=== PATIENT | female | born 1995 | race Caucasian/White ===

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

== ENCOUNTER 2017-03-04 13:37 | Emergency (ER) | payer SELFPAY ==
[2017-03-04] MEDS ORDERED: HYDROcodone /APAP 10/325 1 EACH TABLET PO ONE (14:15)
[2017-03-04] MEDS ORDERED: ONDANSETRON HCL 4 MG TAB.RAPDIS PO ONE (14:15)
[2017-03-04] MEDS ORDERED: ONDANSETRON HCL 4 MG TAB.RAPDIS ONE (14:16)
[2017-03-04 14:42] VITALS: BP 120/66
--- NOTE | 2017-03-04 21:26 | ED Physician Documentation ---
Headache - HISTORIAN Historian: patient - HPI Stated Complaint: headache Chief Complaint: Headache Additional Information: started this am Onset: hours (6) Timing: abrupt, still present Exposure To: none Severity: severe Quality: similar to previous Associated Symptoms: sensitivity to light, nausea Preceding Symptoms: denies: visual disturbance, scotoma, typical of prior aura(s ) Exacerbated By: light, noise Further Comments: no Last known Well Code/Unknown Code: Known - ROS NEURO/PSYCH: denies: confusion, anxiety, depression, fainting EYES/ENT: denies: sore throat, difficulty swallowing, sinus pain, drainage CVS/RESP: none GI/: denies: abdominal pain, diarrhea, problems urinating, incontinence MS/SKIN/LYMPH: denies: muscle aches, back pain, rash, skin lesions, swollen glands all systems neg except as marked: Yes - PAST HX Medical History: no pertinent history Surgical History: other (oral) Immunizations: referred to PCP Allergies/Adverse Reactions: Allergies Allergy/AdvReac Type Severity Reaction Status Date / Time No Known Allergies Allergy Verified 03/04/17 13:49 Home Medications: Ambulatory Orders Medication Instructions Recorded [id number]/Iron Fumarate/FA/Dss 1 each PO DAILY 08/24/16 [ 19 Tablet] - SOCIAL HX Smoking History: non-smoker Alcohol Use: none Drug Use: none - Family HX Family History: none - VITAL SIGNS Vital Signs: Vital Signs Temp Pulse Resp BP Pulse Ox 98.1 F 94 H 20 120/66 98 03/04/17 14:41 03/04/17 14:41 03/04/17 14:41 03/04/17 14:41 03/04/17 14:41 - REVIEWED ASSESSMENTS Nursing Assessment Reviewed: Yes Vitals Reviewed: Yes Progress - Results/Orders Results/Orders: none ordered - Progress Progress: pt. given vicodin 10/325 p.o. x 1 and 4 mg zofran p.o. in er Critical Care Note - Critical Care Note Total Time (mins): 0 ED Results Lab/Radiology - Lab Results Lab Results: none ordered - Radiology Radiology Impressions: none ordered - Orders Orders: ED Orders Category Date Time Status HYDROcodone /APAP 10/325 [[place] 10/325] Med 03/04/17 14:15 Discontinued 1 each PO NOW ONE Ondansetron HCl Rapdis [Zofran Odt] Med 03/04/17 14:16 Discontinued 4 mg .ROUTE .STK-MED ONE Ondansetron HCl Rapdis [Zofran Odt] Med 03/04/17 14:15 Discontinued 4 mg PO NOW ONE Headache Physical Exam - EXAM General Appearance: alert, moderate distress EENT: no facial swelling, eyes nml inspection, PERRL, photophobia, pharynx nml. No: tender temporal artery, pain over sinuses Neck: normal inspection, thyroid normal, supple Respiratory: no resp distress, chest non-tender, breath sounds normal CVS: reg. rate & rhythm, heart sounds nml Abdomen: non-tender, no organomegaly, nml bowel sounds, no distention Skin: color nml, no rash Extremitites: non-tender, normal range of motion, no evidence of injury, no edema - NEURO/PSYCH Higher Functions: alert, oriented x3, nml speech Cranial: nml as tested, no evidence of acute CVA Cerebellar: nml as tested Sensorimotor: motor nml, sensation nml Discharge Clincal Impression: Migraine Qualifiers: Migraine type: unspecified Status migrainosus presence: without status migrainosus Intractability: intractable Qualified Code(s): G43.919 - Migraine, unspecified, intractable, without status migrainosus Referrals: Santiago Vega [Primary Care Provider] - 2 Days Home Medications: Ambulatory Orders Imk421/Iron Fumarate/FA/Dss [ 19 Tablet] 1 each PO DAILY 08/24/16 Comments: discharged with script for fioricet 1 p.o. qid prn headache, #10 Condition: Stable Disposition: 01 HOME, SELF-CARE Decision to Admit: NO Decision Time: 14:35
== END 2017-03-04 14:41 | disposition home or self-care (01) ==
LOC: ED 13:37
DX: G43.919 Migraine, unspecified, intractable, without status migrainosus (principal)
CPT/HCPCS: A9270 ×2; 99283

== ENCOUNTER 2017-04-02 02:40 | Emergency (ER) | payer SELFPAY ==
[2017-04-02 03:21] LABS: BASOPHILS % 1.1 (0.0-1.5); EOSINOPHILS % 5.9 % (0.0-6.8); MEAN CORPUSCULAR HEMOGLOBIN 27.5 pg (28.0-34.0); MEAN CORPUSCULAR VOLUME 85.4 fl (80.0-100.0); MONOCYTES % 3.9 % (0.0-11.0); NEUTROPHILS # 5.1 # k/uL (1.4-7.7)
[2017-04-02] MEDS: fentaNYL CITRATE/PF 100 MCG/ 2ML AMP IVP ONE (03:21)
[2017-04-02] MEDS: ONDANSETRON HCL/PF 4 MG/ 2ML VIAL IVP ONE (03:21)
[2017-04-02] MEDS ORDERED: NORMAL SALINE 500 ML IV.SOLN IV SCH (03:30)
[2017-04-02 03:34] LABS: eGFR (African) > 60; eGFR (Non-African) > 60
[2017-04-02 04:13] VITALS: BP 128/74
--- NOTE | 2017-04-02 04:24 | ED Physician Documentation ---
Abdominal Pain - HISTORIAN Historian: patient - HPI Chief Complaint: Abdominal Pain Additonal Information: 21 yo F who present with RUQ pain associated with nausea but no emesis. Pt recently had 3 weeks ago. No fever or chills reported. No previous abdominal surgery. Onset: hours Context: other (none) Severity: mild Quality: pain Associated Symptoms: nausea Exacerbated by: nothing Relieved by: nothing - ROS CONST: no problems CVS/RESP: none EYES/ENT: none MS/SKIN/LYMPH: none NEURO/PSYCH: none - SOCIAL HX Smoking History: cigarettes - FAMILY HX Family History: no significant history - PAST HX Past History: GERD Home Medications: Ambulatory Orders Medication Instructions Recorded Ranitidine HCl 150 mg PO QDAY 04/02/17 Allergies/Adverse Reactions: Allergies Allergy/AdvReac Type Severity Reaction Status Date / Time No Known Allergies Allergy Verified 04/02/17 02:58 - VITAL SIGNS Vital Signs: Vital Signs Temp Pulse Resp BP Pulse Ox 98.2 F 76 16 128/74 99 04/02/17 04:05 04/02/17 04:05 04/02/17 04:05 04/02/17 04:05 04/02/17 04:05 - REVIEWED ASSESSMENTS Nursing Assessment Reviewed: Yes Vitals Reviewed: Yes Progress - Progress Progress: RUQ with nausea without emesis but chest tightness-- considering recent delivery -- will rule out blood clot--D-dimer negative with negative CT abd/pel -- will d/c home on antacid-- for acid reflux- - EKG/XRAY/CT CT: CT abd/pel --negative for any acute intraabdominal findings ED Results Lab/Radiology - Lab Results Lab Results: Lab Results 04/02/17 04/02/17 04/02/17 03:08 03:08 03:07 WBC 9.00 K/ul K/ul (4.00-12.00) RBC 4.75 M/ul M/ul (3.90-5.20) Hgb 13.1 g/dL g/dL (12.0-16.0) Hct 40.6 % % (34.5-46.5) MCV 85.4 fl fl (80.0-100.0) MCH 27.5 pg L pg (28.0-34.0) MCHC 32.2 g/dL g/dL (30.0-36.0) RDW 12.7 % % (11.3-14.3) Plt Count 282 K/mm3 K/mm3 (130-400) Neut % (Auto) 56.9 % % (39.0-79.0) Lymph % (Auto) 31.9 % % (16.0-50.0) Fisher % (Auto) 3.9 % % (0.0-11.0) Eos % (Auto) 5.9 % % (0.0-6.8) Baso % (Auto) 1.1 (0.0-1.5) Neut # (Auto) 5.1 # k/uL # k/uL (1.4-7.7) Lymph # (Auto) 2.9 # k/uL # k/uL (0.6-4.0) Fisher # (Auto) 0.4 # k/uL # k/uL (0.0-0.9) Eos # (Auto) 0.5 # k/uL # k/uL (0.0-0.6) Baso # (Auto) 0.1 # k/uL # k/uL (0.0-0.5) Reactive Lymphs % 0.5 % % (0.0-5.0) Reactive Lymphs # 0.0 # k/uL # k/uL (0.0-0.8) D-Dimer 464 ng/mL ng/mL (6.0-682) Sodium 142 mmol/L mmol/L (136-145) Potassium 3.9 mmol/L mmol/L (3.5-5.0) Chloride 110 mmol/L mmol/L (98-110) Carbon Dioxide 28 mmol/L mmol/L (20-32) BUN 16 mg/dL mg/dL (10-26) Creatinine 0.6 mg/dL mg/dL (0.4-1.5) Estimated Creat Clear 292 Est GFR ( Amer) > 60 (60 - ) Est GFR (Non-Af Amer) > 60 (60 - ) Glucose 111 mg/dL H mg/dL (70-99) Calcium 10.1 mg/dL mg/dL (8.5-10.5) Total Bilirubin 0.2 mg/dL mg/dL (0.2-1.2) AST 16 U/L U/L (0-41) ALT 14 U/L U/L (0-45) Alkaline Phosphatase 98 U/L U/L (46-116) Total Protein 7.7 g/dL g/dL (6.0-8.5) Albumin 4.3 g/dL g/dL (3.0-5.5) - Orders Orders: ED Orders Category Date Time Status Place IV Lock 1T Care 04/02/17 03:[address] ABDOMEN PELVIS S [CT ABD & PELVIS W/O CON] Stat Exams 04/02/17 Ordered CBC/PLATELET/DIFF Routine Lab 04/02/17 03:08 Completed CMP [CMP] Routine Lab 04/02/17 03:08 Completed D DIMER Routine Lab 04/02/17 03:07 Completed UA W/MICRO IF INDICATED Routine Lab 04/02/17 03:02 Ordered 0.9 % Sodium Chloride [Normal Saline] Med 04/02/17 03:30 Ordered 1,000 ml IV DIRECTED Ondansetron HCl/Pf [Zofran 4 mg/2 ml] Med 04/02/17 03:04 Discontinued 4 mg IVP NOW ONE fentaNYL CITRATE/PF [Duragesic] Med 04/02/17 03:05 Discontinued 25 mcg IVP NOW ONE Abdominal Pain Physical Exam - Physical Exam General Appearance: no acute distress EENT: eye inspection normal, ENT inspection normal, pharynx normal, no signs of dehydration, SIMI, no nystagmus, TM's nml NECK: normal inspection RESPIRATORY: no resp distress, chest non-tender, breath sounds normal CVS: reg rate & rhythm, heart sounds normal, equal pulses, no murmur, no gallop , PMI nml, no JVD, no friction rub, 24 ABDOMEN: soft, no organomegaly, normal bowel sounds, no abdominal bruit, no distension, tenderness (RUQ) BACK: normal inspection, no CVA tenderness SKIN: normal color, warm/dry, NR, INT, PAL, DR EXTREMITIES: non-tender, normal range of motion, no evidence of injury, no edema , J, 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: oriented X3, CN's nml as tested, motor nml, sensation nml Vital Signs: Vital Signs Temp Pulse Resp BP Pulse Ox 98.2 F 76 16 128/74 99 04/02/17 04:05 04/02/17 04:05 04/02/17 04:05 04/02/17 04:05 04/02/17 04:05 Discharge Clincal Impression: Acid reflux disease Qualifiers: Esophagitis presence: esophagitis presence not specified Qualified Code(s): K21.9 - Gastro-esophageal reflux disease without esophagitis Referrals: Santiago Vega [Primary Care Provider] - 2 Days Home Medications: Ambulatory Orders Ranitidine HCl 150 mg PO QDAY 04/02/17 Condition: Stable Disposition: 01 HOME, SELF-CARE Decision to Admit: NO Decision Time: 04:00
[2017-04-02 05:36] LABS: APPEARANCE,URINE CLOUDY (CLEAR); COLOR,URINE YELLOW (YELLOW); OCCULT BLOOD,URINE 2+ (NEGATIVE); PH URINE 5.5 (5.0 - 8.0); UROBILINOGEN URINE 0.2 Eu (0.2-1.0)
--- NOTE | 2017-04-02 06:00 | Diagnostic Imaging Report ---
AARON SPRAGUE~ [facility] [address] [facility] [address] [place], [place]. [address] ~ ~ ~ ~ Report Submission Date: Apr 02, 2017 3:53:49 AM CDT Patient ~ Study Name: JOSE VUONG ~ Date: Apr 02, 2017 3:26:42 AM CDT ~ Modality Type: CT\SR Gender: F ~ Description: CT ABD & PELVIS W/O CO : 97 ~ Institution: [facility] Physician: AARON SPRAGUE ~ ~ ~ ~ Examination: CT Abdomen/pelvis History: RLQ discomfort Comparison exams: None available Technique: CT Abdomen/pelvis without contrast protocol.~ Findings: Liver, spleen, adrenal glands, kidneys, pancreas and gallbladder are without irregularity.~ Abdominal aorta with mild peripheral atherosclerotic disease. ~Bowel without contrast limiting evaluation. No pericecal / periappendiceal inflammatory changes. No right adnexal mass or inflammation. No evidence for acute mesenteric inflammation or free air. Osseous structures without abnormality. Lung bases without infiltrate. Impression: No abdominal mass or acute inflammatory process given technique. ~ Electronically signed on Apr 02, 2017 3:53:49 AM CDT by: Dixon GIRALDO
== END 2017-04-02 04:05 | disposition home or self-care (01) ==
LOC: ED 02:40
DX: K21.9 Gastro-esophageal reflux disease without esophagitis (principal)
CPT/HCPCS: 74176; 80053; 81002; 85025; 85379; 87086; J2405; J3010; 96374; 96375; 99283; S1016

== ENCOUNTER 2018-07-13 20:20 | Emergency (ER) | payer BC ==
--- NOTE | 2018-07-13 20:40 | ED Physician Documentation ---
General Adult - HISTORIAN Historian: patient - HPI Stated Complaint: Right ear pain Chief Complaint: General Adult Onset: days ago (3) Timing: still present Severity: moderate Further Comments: yes (Pt is a 22 yo female with R ear pain x 3 days. Pt dose not have sore throat or fever, n/v.) - ROS CONST: no problems EYES/ENT: other (R ear pain) CVS/RESP: none GI/: none MS/SKIN/LYMPH: none - PAST HX Past History: other (migraine) Allergies/Adverse Reactions: Allergies Allergy/AdvReac Type Severity Reaction Status Date / Time No Known Allergies Allergy Verified 07/13/18 20:29 Home Medications: Ambulatory Orders Medication Instructions Recorded NK 07/13/18 - SOCIAL HX Smoking History: non-smoker - FAMILY HX Family History: No - VITAL SIGNS Vital Signs: Vital Signs Temp Pulse Resp BP Pulse Ox 98.6 F 82 18 128/74 98 07/13/18 20:25 07/13/18 20:25 07/13/18 20:25 04/02/17 04:05 07/13/18 20:25 - REVIEWED ASSESSMENTS Nursing Assessment Reviewed: Yes Vitals Reviewed: Yes Progress - Progress Progress: Rx Amoxicillin 500 mg. Take one every 8 hours for 10 days. Tylenol/Motrin as needed. Use as directed. General Adult Physical Exam - PHYSICAL EXAM GENERAL APPEARANCE: mild distress EENT: pharynx normal, TM erythema (R) NECK: normal inspection, supple RESPIRATORY: no resp distress, chest non-tender, breath sounds normal CVS: reg rate & rhythm, heart sounds normal BACK: normal inspection, no CVA tenderness SKIN: warm/dry, normal color EXTREMITIES: non-tender, normal range of motion, no evidence of injury NEURO: oriented X3 Discharge Clincal Impression: Otitis media Qualifiers: Otitis media type: unspecified Chronicity: acute Qualified Code(s): H66.90 - Otitis media, unspecified, unspecified ear Referrals: Kaushik Davenport MD [Primary Care Provider] - Condition: Good Disposition: 01 HOME, SELF-CARE Decision to Admit: NO Decision Time: 20:41
[2018-07-13] MEDS ORDERED: AMOXICILLIN 500 MG CAPSULE PO ONE (20:43)
== END 2018-07-13 20:45 | disposition home or self-care (01) ==
LOC: ED 20:20
DX: H66.90 Otitis media, unspecified, unspecified ear (principal)

== ENCOUNTER 2019-04-22 21:15 | Emergency (ER) | payer BC, MEDICAID ==
[2019-04-22] MEDS ORDERED: ONDANSETRON HCL/PF 4 MG/ 2ML VIAL IVP ONE (21:26)
[2019-04-22] MEDS ORDERED: 0.9 % SODIUM CHLORIDE 1,000 ML IV ONE (21:26)
[2019-04-22] MEDS ORDERED: PANTOPRAZOLE SODIUM IVP ONE (21:31)
[2019-04-22] MEDS ORDERED: SALINE FLUSH IVP ONE (21:31)
--- NOTE | 2019-04-22 21:34 | ED Physician Documentation ---
Nausea/Vomiting/Diarrhea - HISTORIAN Historian: patient - HPI Stated Complaint: nausea and diarrhea Chief Complaint: Nausea,Vomiting,Diarrhea Additional Information: Patient presents to ED with a 4 day history of diarrhea with epigastric pain and nausea beginning today. Patient denies fever or chills. She states she just feels horrible. Onset: days ago (4) Duration: persistent Timing: gradual onset Context: denies: out of country travel, bad food Severity: moderate - Associated Symptoms Vomiting: mild Diarrhea: watery Abdominal Pain: epigastric, LUQ - ROS CONST: none CVS/RESP: denies: chest pain, shortness of breath, cough GI/: denies: constipation, bloody stools EYES/ENT: none MS/SKIN/LYMPH: denies: leg swelling NEURO/PSYCH: denies: headache - PAST HX Past History: none Surgeries/Procedures: none Allergies/Adverse Reactions: Allergies Allergy/AdvReac Type Severity Reaction Status Date / Time No Known Drug Allergies Allergy Verified 04/22/19 21:32 Home Medications: Ambulatory Orders Medication Instructions Recorded Ondansetron HCl Rapdis [Zofran Odt] 4 mg PO Q8 PRN #20 tab 04/22/19 - SOCIAL HX Smoking History: cigarettes, greater than 1 pack/day Alcohol Use: none Drug Use: none - FAMILY HX Family History: none - VITAL SIGNS Vital Signs: Vital Signs Temp Pulse Resp BP Pulse Ox 98.3 F 90 18 155/89 100 04/22/19 21:17 04/22/19 21:17 04/22/19 21:17 04/22/19 21:17 04/22/19 21:17 - REVIEWED ASSESSMENTS Nursing Assessment Reviewed: Yes Vitals Reviewed: Yes ED Results Lab/Radiology - Lab Results Lab Results: Lab Results 04/22/19 04/22/19 22:10 22:10 WBC 16.00 K/ul H K/ul (4.00-12.00) RBC 4.68 M/ul M/ul (3.90-5.20) Hgb 12.0 g/dL g/dL (11.5-16.0) Hct 36.3 % % (34.5-46.5) MCV 78.0 fl L fl (80.0-100.0) MCH 25.6 pg L pg (28.0-34.0) MCHC 33.1 g/dL g/dL (30.0-36.0) RDW 12.9 % % (11.3-14.3) Plt Count 300 K/mm3 K/mm3 (130-400) Neut % (Auto) 70.9 % % (39.0-79.0) Lymph % (Auto) 20.1 % % (16.0-50.0) [place] % (Auto) 5.1 % % (0.0-11.0) Eos % (Auto) 3.3 % % (0.0-6.8) Baso % (Auto) 0.6 % % (0.0-1.5) Neut # (Auto) 11.3 # k/uL H # k/uL (1.4-7.7) Lymph # (Auto) 3.2 # k/uL # k/uL (0.6-4.0) [place] # (Auto) 0.8 # k/uL # k/uL (0.0-0.9) Eos # (Auto) 0.5 # k/uL # k/uL (0.0-0.6) Baso # (Auto) 0.1 # k/uL # k/uL (0.0-0.5) Sodium 138 mmol/L mmol/L (137-145) Potassium 4.0 mmol/L mmol/L (3.5-5.1) Chloride 104 mmol/L mmol/L (98-107) Carbon Dioxide 25 mmol/L mmol/L (22-30) BUN 14 mg/dL mg/dL (7-17) Creatinine 0.61 mg/dL mg/dL (0.52-1.04) Estimated Creat Clear 331 Est GFR ( Amer) > 60 (60 - ) Est GFR (Non-Af Amer) > 60 (60 - ) Glucose 112 mg/dL H mg/dL (74-106) Calcium 9.4 mg/dL mg/dL (8.4-10.2) Total Bilirubin 0.2 mg/dL mg/dL (0.2-1.3) AST 58 U/L H U/L (15-46) ALT 17 U/L U/L (13-69) Alkaline Phosphatase 97 U/L U/L (38-126) Total Protein 7.7 g/dL g/dL (6.3-8.2) Albumin 4.2 g/dL g/dL (3.5-5.0) UA - negative for infection, HCG negative - Radiology Radiology Impressions: Report Submission Date: Apr 22, 2019 11:24:39 PM CDT Patient Study Name: CAROLANN GARCIA Date: Apr 22, 2019 10:58:31 PM CDT Modality Type: CT Gender: F Description: CT ABD/PEL W/ : 97 Institution: [facility] Physician: SCARLETT VILLALBA CT abdomen and pelvis with contrast Clinical history: Abdominal pain and nausea. Elevated white cell count. Technique: CT abdomen and pelvis is performed with intravenous infusion of contrast. Sagittal and coronal reconstructions were performed by the technologist. Findings: Visualized lung bases are clear. The liver and spleen demonstrate normal attenuation without focal defect. The gallbladder is contracted. There is no pancreatic or adrenal abnormality. The kidneys demonstrate symmetric enhancement. There is no retroperitoneal mass or significant adenopathy. Appendix is visualized and is within normal limits. Gas and stool are present throughout the colon. Bladder is unremarkable. There is no free fluid in the pelvis or abdomen. Uterus and adnexal structures are within normal limits. Impression: 1. Negative appendix. 2. Contracted gallbladder. 3. No acute changes in the abdomen or pelvis. Electronically signed on Apr 22, 2019 11:24:39 PM CDT by: Ashkan Yeh - Orders Orders: ED Orders Category Date Time Status Place IV Lock 1T Care 04/22/19 21:[address] ABD & PELVIS W/ CON Stat Exams 04/22/19 Taken CBC/PLATELET/DIFF Routine Lab 04/22/19 22:10 Completed CMP Routine Lab 04/22/19 22:10 Completed UA W/MICRO IF INDICATED Routine Lab 04/22/19 21:26 Ordered URINE HCG Stat Lab 04/22/19 22:19 Ordered 0.9 % Sodium Chloride [Normal Saline] 1,000 ml Med 04/22/19 21:26 Discontinued IV Q1H Ondansetron HCl/Pf [Zofran] Med 04/22/19 21:26 Discontinued 4 mg IVP NOW ONE Pantoprazole Sodium [Protonix] 40 mg Med 04/22/19 21:31 Discontinued Saline Flush [Normal Saline Flush] 10 ml IVP NOW Nausea Physical Exam - EXAM General Appearance: no acute distress, alert EENT: SIMI Neck: supple. No: lymphadenopathy Respiratory: no resp distress, chest non-tender, breath sounds normal CVS: reg rate & rhythm, heart sounds normal Abdomen: other (Epigastric/LUQ tenderness) Skin: warm/dry Extremities: non-tender, no evidence of injury, no edema Neuro/Psych: oriented X3, sensation nml, mood/affect nml Discharge Clincal Impression: Gastroenteritis Prescriptions: Ondansetron HCl Rapdis [Zofran Odt] 4 mg PO Q8 PRN #20 tab PRN Reason: nausea/vomiting Referrals: Kaushik Davenport MD [Primary Care Provider] - 2 Days Additional Instructions: 1. Zofran every 8 hours as needed for nausea 2. Over the counter Imodium as needed for diarrhea 3. Drink plenty of fluids to maintain proper hydration 4. Follow up with PCP within 1 week 5. Return to ER for new or worsening symptoms Condition: Stable Disposition: 01 HOME, SELF-CARE Decision to Admit: NO Date of Decison to Admit: 04/22/19 Decision Time: 23:32
[2019-04-22 22:20] LABS: BASOPHILS % 0.6 % (0.0-1.5)
[2019-04-22 22:21] LABS: NEUTROPHILS # 11.3 # k/uL (1.4-7.7)
[2019-04-22 22:28] LABS: eGFR (Non-African) > 60
--- NOTE | 2019-04-22 23:51 | Diagnostic Imaging Report ---
SCARLETT VILLALBA [facility] [id number] [facility] [address] [place], [place]. [address] Report Submission Date: Apr 22, 2019 11:24:39 PM CDT Patient Study Name: CAROLANN GARCIA Date: Apr 22, 2019 10:58:31 PM CDT Modality Type: CT Gender: F Description: CT ABD/PEL W/ : 97 Institution: [facility] Physician: SCARLETT VILLALBA CT abdomen and pelvis with contrast Clinical history: Abdominal pain and nausea. Elevated white cell count. Technique: CT abdomen and pelvis is performed with intravenous infusion of contrast. Sagittal and coronal reconstructions were performed by the technologist. Findings: Visualized lung bases are clear. The liver and spleen demonstrate normal attenuation without focal defect. The gallbladder is contracted. There is no pancreatic or adrenal abnormality. The kidneys demonstrate symmetric enhancement. There is no retroperitoneal mass or significant adenopathy. Appendix is visualized and is within normal limits. Gas and stool are present throughout the colon. Bladder is unremarkable. There is no free fluid in the pelvis or abdomen. Uterus and adnexal structures are within normal limits. Impression: 1. Negative appendix. 2. Contracted gallbladder. 3. No acute changes in the abdomen or pelvis. Electronically signed on Apr 22, 2019 11:24:39 PM CDT by: Ashkan GIRALDO
[2019-04-23 00:08] VITALS: BP 144/81
[2019-04-23 10:07] LABS: APPEARANCE,URINE CLEAR (CLEAR); COLOR,URINE YELLOW (YELLOW); OCCULT BLOOD,URINE NEGATIVE (NEGATIVE); PH URINE 5.5 (5.0 - 8.0); UROBILINOGEN URINE 0.2 Eu (0.2-1.0)
[2019-04-23 10:08] LABS: URINE HCG NEGATIVE (NEGATIVE)
== END 2019-04-22 23:47 | disposition home or self-care (01) ==
LOC: ED 21:15
DX: K52.9 Noninfective gastroenteritis and colitis, unspecified (principal); K82.0 Obstruction of gallbladder
CPT/HCPCS: 74177; 80053; 81002; 81025; 85025; 96361; 96374; 96375; 99283; 99284; J2405; J7030; Q9967; S1016